=== PATIENT | male | born 1950 | race Caucasian/White ===

== ENCOUNTER 2017-08-05 06:19 | Day surgery (SDC) | payer BC ==
[2017-07-31 12:07] VITALS: BMI 26.9
[2017-08-05] MEDS ORDERED: TETRACAINE 0.5% OPHTH SOLN 2 ML BOTTLE ONE (06:55)
[2017-08-05] MEDS ORDERED: BACITRACIN 3.5 GM OPTHALMIC OINT TUBE ONE (06:55)
[2017-08-05] MEDS ORDERED: BUPIVACAINE HCL/PF 0.5% (5MG/ML) 10 ML VIAL ONE (06:56)
[2017-08-05] MEDS ORDERED: POVIDONE-IODINE 5% OPHTHALMIC PREP 30 ML SOLUTION ONE (06:56)
[2017-08-05] MEDS ORDERED: LIDOCAINE 1%/EPI 1:100000 (20 ML MULTI DOSE VIAL) ONE (06:56)
[2017-08-05] MEDS ORDERED: MIDAZOLAM HCL 2 MG/2 ML SINGLE DOSE VIAL ONE (07:20)
[2017-08-05] MEDS ORDERED: ceFAZolin SODIUM 1 GM VIAL ONE (07:41)
[2017-08-05] MEDS ORDERED: PROPOFOL 20 ML ONE ×4 (07:56→08:39)
[2017-08-05] MEDS ORDERED: DEXAMETHASONE SOD PHOSPHATE 4 MG/1 ML VIAL ONE (08:26)
[2017-08-05] MEDS ORDERED: ONDANSETRON 4 MG/2 ML VIAL ONE (08:26)
[2017-08-05] MEDS ORDERED: ACETAMINOPHEN 500 MG TABLET (FP) PO PRN (08:59)
[2017-08-05] MEDS ORDERED: LACTATED RINGERS SOLUTION 1,000 ML IV SCH (09:00)
[2017-08-05] MEDS ORDERED: oxyCODONE HCL 5 MG TABLET PO PRN (09:00)
[2017-08-05] MEDS ORDERED: ONDANSETRON 4 MG/2 ML VIAL IVPUSH PRN (09:00)
[2017-08-05 10:05] VITALS: TEMP 97.5
[2017-08-05 10:37] VITALS: BP 117/73; PULSE 57
--- NOTE | 2017-08-05 17:32 | OP ---
DATE OF OPERATION: 08/05/2017 PREOPERATIVE DIAGNOSIS: Intermittent entropion with chronic irritation, left lower lid and left eye. POSTOPERATIVE DIAGNOSIS: Intermittent entropion with chronic irritation, left lower lid and left eye. PROCEDURE: 1. Lateral tarsal strip, left lower lid. 2. Transconjunctival plication of retractors. 3. Partial-thickness orbicularis flap, left lower lid, and correction of entropion. SURGEON: Rodolfo Estes MD ANESTHESIA: Local with sedation. COMPLICATIONS: None. ESTIMATED BLOOD LOSS: 1-2 mL. DESCRIPTION OF OPERATION: Patient brought to the operating room and placed on the operating room table. Vital signs were monitored by Anesthesia. Tetracaine was placed in both eyes. Lateral canthal lines were marked the left lateral canthus. Patient was given intravenous sedation, and a 50/50 mixture of 2% Xylocaine to 1:100,000 epinephrine and 0.5% Marcaine was injected subcutaneously in the lateral canthus, down to the periosteum, lateral third of the upper and lower lids, subconjunctiva, and the inferior fornix. The patient was prepped and draped in the usual sterile fashion, exposing both eyes. Next, 4-0 silk traction suture was passed through the central lid margin. Lateral canthal incision was made with a 15 blade down through the skin and subcutaneous tissue. This was carried down to the orbital rim with a Woodruff needle, and the inferior jackson and lateral canthal tendon were from the orbital rim with sharp dissection. Lid was overlapped at the orbital rim, marked with a sterile marking pen, and divided into an anterior and posterior lamella. The anterior lamella was excised. The posterior lamella was denuded of epithelium posteriorly and superiorly, and then, the tarsal strip was reattached at the orbital rim at the junction with the superior jackson of the lateral canthal tendon with a double-arm 5-0 Prolene suture reinforced with 6-0 Vicryl sutures. The Prolene was not tied at this point. The lid was everted over Desmarres retractor. Transconjunctival incision was made with a Woodruff needle through conjunctival retractors, and the postorbicularis tissue was dissected off of the orbicularis down to the septum, releasing it. Pretarsal orbicularis was dissected off of the tarsus, and a partial-thickness flap of orbicularis was removed at the inferior tarsal border with a small amount of cautery placed there for fibrosis to prevent preseptal override. Retractors were then reattached and plicated to the anterior-inferior tarsus with 4 interrupted 6-0 Vicryl buried sutures, which closed the retractors and the conjunctivae. The lateral canthal angles were reformed with a 5-0 chromic to the rosa line of the upper and lower lid with buried fashion, recreating the left canthus. The Prolene was now tied. The excess tarsal strip was overlapped over the Prolene, tied with a 5-0 chromic. Subcutaneous tissues were closed with 5-0 chromic and the skin with interrupted 6-0 plain suture, and the traction stitch was removed. Antibiotic irrigation was used throughout the case. Bacitracin ointment was placed in the left eye on the sutures of the lateral canthus, and the patient was taken to recovery room in stable condition. Carly RASUCH/[id number]
== END 2017-08-05 10:35 | disposition home or self-care (01) ==
LOC: FASU 06:19
PROVIDERS: ATTEND Ophthalmology
PROC: 08SR0ZZ Reposition Left Lower Eyelid, Open Approach (ICD-10-PCS; principal; 2017-08-05 07:41)
DX: H02.005 Unspecified entropion of left lower eyelid (principal)
CPT/HCPCS: 94760

== ENCOUNTER 2019-07-13 07:36 | Day surgery (SDC) | payer BC ==
[2019-07-08 12:27] VITALS: BMI 25.4
[2019-07-13] MEDS ORDERED: ERYTHROMYCIN 0.5% OPHTHALMIC OINTMENT 3.5 GM TUBE ONE (09:31)
[2019-07-13] MEDS ORDERED: TETRACAINE 0.5% OPHTH SOLN 2 ML BOTTLE ONE (09:31)
[2019-07-13] MEDS ORDERED: POVIDONE-IODINE 5% OPHTHALMIC PREP 30 ML SOLUTION ONE (09:32)
[2019-07-13] MEDS ORDERED: LIDOCAINE 1%/EPI 1:100000 (20 ML MULTI DOSE VIAL) ONE (09:32)
[2019-07-13] MEDS ORDERED: MIDAZOLAM HCL 2 MG/2 ML SINGLE DOSE VIAL ONE ×2 (09:34→09:51)
[2019-07-13] MEDS ORDERED: PROPOFOL 20 ML ONE (10:10)
[2019-07-13] MEDS ORDERED: ceFAZolin SODIUM 1 GM VIAL ONE (10:14)
[2019-07-13] MEDS ORDERED: ONDANSETRON 4 MG/2 ML VIAL ONE (10:45)
[2019-07-13] MEDS ORDERED: DEXAMETHASONE SOD PHOSPHATE 4 MG/1 ML VIAL ONE (10:45)
[2019-07-13] MEDS ORDERED: oxyCODONE HCL 5 MG TABLET PO PRN (10:53)
[2019-07-13] MEDS ORDERED: ONDANSETRON 4 MG/2 ML VIAL IVPUSH PRN (10:53)
[2019-07-13] MEDS ORDERED: LACTATED RINGERS SOLUTION 1,000 ML IV SCH (11:00)
[2019-07-13 11:11] VITALS: TEMP 97.7
[2019-07-13 12:31] VITALS: PULSE 52
[2019-07-13 12:35] VITALS: BP 136/85
--- NOTE | 2019-07-13 12:38 | OP ---
DATE OF OPERATION: 07/13/2019 PREOPERATIVE DIAGNOSIS: Ptosis, left upper lid, acquired. POSTOPERATIVE DIAGNOSIS: Ptosis, left upper lid, acquired. PROCEDURE: Howard muscle resection, left upper lid, 7.5 to 8 mm. SURGEON: Cezar Reed MD ANESTHESIA: Local with sedation COMPLICATIONS: None. ESTIMATED BLOOD LOSS: 1 to 2 mL. OPERATIVE REPORT: Patient brought to the operating room, placed on the operating room table, vital signs monitored by Anesthesia. Tetracaine was placed in both eyes. Timeout was performed, after which 2% Xylocaine and 1:100,000 epinephrine was injected for 0.5 mL subconjunctivally at the superior tarsus and a small amount centrally subcutaneously in the central eyelid. Massage was gently applied for hemostasis. Patient was prepped and draped in usual sterile fashion, exposing both eyes. A 4-0 silk traction suture was passed through the central lid margin and the lid was everted over a Desmarres retractor using a caliper, double checked against a ruler. A resection measuring 3.75 mm to 4 mm was now marked, 3.75 to 4 mm above the central tarsal plate and 7 mm nasal and temporal to this additionally. Additional arevalo were made. A 6-0 silk was then passed through each of the arevalo in the conjunctiva temporally, centrally, and nasally. Conjunctiva was then distracted from overlying skin by gently elevating it with a forceps throughout and the silk suture was then used as a 4-prong suture to elevate the conjunctiva Howard muscle away from the eyelid. The incorporated tissues were then incorporated into the Putterman clamp just above the tarsal plate. A double-armed 6-0 plain suture was run from temporal to nasal, 1.5 mm away from the clamp in a mattress fashion. The incorporated tissue in the clamp was then excised with a 15 blade, being careful not to cut the original 6-0 plain suture. The 6-0 silk suture was removed with this excision, and the same suture was then run from nasal to temporal in a baseball type fashion, closing the conjunctiva. Each arm of the suture at the temporal end of the incision was then passed through the conjunctiva and passed through the full-thickness eyelid and the knot was tied externally and after the knot was tied, the lid was everted, demonstrating good closure of the wound. Traction suture was removed. Erythromycin ointment was placed in the eye and on the sutures of the lateral eyelid and the patient was awakened from anesthesia and taken to the recovery room in stable condition. CEZAR REED M.D. [id number]
--- NOTE | 2019-07-19 11:27 | PATH ---
Surgical Pathology Report Patient Name: MANASA HANCOCK [facility]. Rec. #: [id number] /Age/Gender: 1950 (Age: 69) / M Account: [id number] Location: [facility] Taken: 07/13/2019 Received: 07/13/2019 Reported: 07/19/2019 Physicians: Rodolfo Estes Specimen(s) Received LEFT UPPER EYELID Clinical History Ptosis Final Diagnosis UPPER EYELID, LEFT, REPAIR: EYELID TISSUE SHOWING VASCULAR CONGESTION, FIBROSIS AND MILD CHRONIC INFLAMMATION. Electronically Signed Latosha Howard M.D. Gross Description Received in formalin, labeled "left upper eyelid" is a 1.4 x 0.3 x 0.2 cm unoriented portion of dark henry tissue. An undesignated suture is present within the specimen. The specimen is sectioned and entirely submitted in one cassette AE/07/14/2019 ebram/07/14/2019
== END 2019-07-13 12:10 | disposition home or self-care (01) ==
LOC: FASU 07:36
PROVIDERS: ATTEND Ophthalmology
PROC: 08BP0ZZ Excision of Left Upper Eyelid, Open Approach (ICD-10-PCS; 2019-07-13)
PROC: 08BTXZZ Excision of Left Conjunctiva, External Approach (ICD-10-PCS; principal; 2019-07-13 10:14)
DX: H02.402 Unspecified ptosis of left eyelid (principal)
CPT/HCPCS: 88304-TC; 94760